=== PATIENT | female | born 1955 | race Caucasian/White ===

== ENCOUNTER 2017-12-09 06:36 | Day surgery (SDC) | payer BC ==
[~2017-12-09 06:36] MED LIST: ASPIRIN EC81 MG PO; ASPIRIN LOW81 M1 PO; AUGMENTIN875TAB PO; BACTRIM DS1 TAB PO; CELEXA20 MG PO; CITALOPRAM HYDR40 MG PO; CLONAZEPAM0.5 M1 PO; FOLIC ACID1 MG PO; KEFLEX500 MG PO; LISINOP/HCTZ1 TAB PO; LISINOPRIL10 MG PO; MELOXICAM7.5 MG PO; NAPROSYN500 MG PO; NORCO1 TA1 PO; OMEPRAZOLE20 MG PO; POTASSIUM CHLO10 ME2 PO; PRILOSEC20 MG/CAP PO
[2017-12-09 10:50] VITALS: BP 133/76
== END 2017-12-09 10:57 | disposition home or self-care (01) | DRG 951 ==
LOC: ENDO 06:36
PROVIDERS: ATTEND Surgery
PROC: 0DBP8ZX Excision of Rectum, Via Natural or Artificial Opening Endoscopic, Diagnostic (ICD-10-PCS; principal; 2017-12-09)
DX: Z12.11 Encounter for screening for malignant neoplasm of colon (principal); D12.8 Benign neoplasm of rectum; K86.1 Other chronic pancreatitis